=== PATIENT | female | born 1975 | race African-American/Black ===

== ENCOUNTER 2018-12-21 09:28 | Emergency (ER) | payer BC, SELFPAY ==
[2018-12-21] MEDS ORDERED: Ketorolac Tromethamine 30 MG/ML VIAL ONE (10:47)
== END 2018-12-21 11:36 | disposition home or self-care (01) ==
LOC: ERS 09:28
DX: M25.462 Effusion, left knee (principal); F32.9 Major depressive disorder, single episode, unspecified; F17.210 Nicotine dependence, cigarettes, uncomplicated
CPT/HCPCS: 96372; J1885

== ENCOUNTER 2019-05-24 09:59 | Outpatient (CLI) | payer OTHER ==
--- NOTE | 2019-05-24 11:10 | MRI ---
EXAM: Left knee MRI without contrast: HISTORY: Meniscal tear posterior and lateral pain and swelling COMPARISON: None FINDINGS: Multiplanar, multisequence MRI examination of the knees performed. Large joint effusion with some linear and interstitial changes evidence for associated synovitis. In addition there are some fatty deposits within the joint capsule region evidence for lipoma arborescens Severe articular cartilage loss particularly the lateral and medial compartments. Medial meniscus: Unremarkable. Lateral meniscus: Extensive complex tear of the lateral meniscus with a flap component at the anterio r horn and probably at the posterior horn. Anterior cruciate ligament:Markedly abnormally thickened and of high signal evidence for extensive mu coid degeneration without acute disruption. Posterior cruciate ligament: Intact. Medial collateral ligament complex: Intact. Lateral collateral ligament complex: Intact. Quadriceps and patellar tendons: Intact. Extensor mechanism: Unremarkable. Minimal intraosseous cystic changes in the proximal fibula. IMPRESSION: Evidence for joint effusion and associated nonspecific synovitis with evidence for lipoma arborescens . Complex tear of the lateral meniscus with flap components. Marked mucoid degeneration of the ACL without acute obstruction. Extensive cartilage loss particularly of the lateral compartment.
== END 2019-05-24 10:00 | disposition home or self-care (01) ==
LOC: BICMRI 09:59
PROVIDERS: ATTEND Orthopaedic Surgery
DX: S83.272A Complex tear of lateral meniscus, current injury, left knee, initial encounter (principal); M25.462 Effusion, left knee; M65.9 Synovitis and tenosynovitis, unspecified; D17.79 Benign lipomatous neoplasm of other sites; R93.6 Abnormal findings on diagnostic imaging of limbs

== ENCOUNTER 2019-05-25 10:29 | Outpatient (CLI) | payer OTHER ==
[2019-05-25 16:38] LABS: #Basophils 0.1 thou/uL (0.0-0.2); #Eosinphils 0.2 thou/uL (0.0-0.7); #Lymphocytes 3.1 thou/uL (1.20-3.40); #Monocytes 0.5 thou/uL (0.11-0.59); %Basophils 1.5 % (0.0-1.0); %Eosinophils 2.3 % (0.0-10.0); %Lymphocytes 34.9 % (21.0-51.0); %Monocytes 5.1 % (0.0-10.0); %Neutrophils 56.2 % (42.0-75.0); Mean Corpuscular HGB CONC 33.3 g/dL (32.0-36.0); Mean Corpuscular Hemoglobin 33.5 pg (27.0-31.0); Mean Platelet Volume 6.2 fL (7.4-10.4); Platelet Count 458 thou/uL (130-400); RBC Distribution Width 11.7 % (11.5-14.5); Red Blood Cell (RBC) Count 3.89 mill/uL (4.20-5.40); White Blood Cell (WBC) Count 8.8 thou/uL (4.8-10.8)
[2019-05-25 16:59] LABS: Anion Gap 15 mmol/L (10-20); BUN (Urea Nitrogen) 6 mg/dL (7.0-18.7); Calc. Creatinine Clearance 0 mL/min (70-130); Calcium 9.9 mg/dL (7.8-10.44); Carbon Dioxide 24 mmol/L (22-29); Chloride 101 mmol/L (98-107); Estimated GFR-MDRD Greater than 90; Glucose 76 mg/dL (70-105); Potassium 3.8 mmol/L (3.5-5.1); Sodium 136 mmol/L (136-145)
== END 2019-05-25 10:30 | disposition home or self-care (01) ==
LOC: LABBT 10:29
PROVIDERS: ATTEND Specialist
DX: Z01.812 Encounter for preprocedural laboratory examination (principal); K40.20 Bilateral inguinal hernia, without obstruction or gangrene, not specified as recurrent
CPT/HCPCS: 80048; 85025

== ENCOUNTER 2019-06-01 08:57 | Day surgery (SDC) | payer OTHER ==
[2019-05-25 16:03] VITALS: BMI 24.0
--- NOTE | 2019-05-28 10:13 | HP ---
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 Dr. Dietz is planning arthroscopy and left knee surgery in the future pending MRI. The patient has a large right inguinal hernia. It is very bothersome to her interfering with ability to work and function, ambulate with crutches, with an immobilizer on her left knee. On exam today, I appreciate a left inguinal hernia on standing. Plan is for laparoscopic mesh repair of bilateral inguinal hernias. She understands risks and benefits of the procedure and consents. SOCIAL HISTORY: Tobacco, 1/2 pack per day. Alcohol, occasionally. PAST SURGICAL HISTORY: Umbilical hernia repair, laparoscopic cholecystectomy, and partial hysterectomy in the past. PAST MEDICAL HISTORY: Hypertension and anxiety. MEDICATIONS: Tramadol, fluoxetine, triamterene, and hydrochlorothiazide 37.5/25 daily. REVIEW OF SYSTEMS: Ten-point noncontributory. PHYSICAL EXAMINATION: VITAL SIGNS: Weight 157 pounds, 69 inches, 23 BMI. HEAD, EARS, EYES, NOSE AND THROAT: Unremarkable. LUNGS: Clear to auscultation. CARDIAC: Regular rate and rhythm without murmur or gallop. ABDOMEN: Soft and nontender. EXTREMITIES: Left knee immobilizer. Large right inguinal hernia present on standing, large in the left side. Left inguinal hernia present on Valsalva. ASSESSMENT AND PLAN: 1. Bilateral inguinal hernias, right larger than left; right symptomatic and left asymptomatic. Plan laparoscopic mesh repair. She understands risks of infection, bleeding, reoperation, chronic pain, open procedure and consents. 2. Hypertension. 3. Anxiety and depression. Job ID: [id number]
[2019-06-01] MEDS ORDERED: Ketorolac Tromethamine 30 MG/ML VIAL ONE (09:16)
[2019-06-01] MEDS ORDERED: Bupivacaine HCl 0.5%/Epinephrine 1:200,000/PF 30 ml Vial ONE (11:06)
[2019-06-01] MEDS ORDERED: Fentanyl 100 MCG/2 ML VIAL ONE ×2 (11:09→13:11)
[2019-06-01] MEDS ORDERED: Midazolam HCl 2 mg/2 ml Vial ONE (11:14)
[2019-06-01] MEDS ORDERED: Dexamethasone 20 MG/5 ML VIAL ONE (11:41)
[2019-06-01] MEDS ORDERED: Rocuronium Bromide 10 MG/ML (10ML VIAL) ONE (11:41)
[2019-06-01] MEDS ORDERED: Lidocaine 1% PF 5 ML VIAL ONE (11:41)
[2019-06-01] MEDS ORDERED: PROPOFOL 200 MG/20 ML VIAL ONE (11:41)
[2019-06-01] MEDS ORDERED: Ondansetron PF 4 MG/2 ML Vial ONE (11:41)
[2019-06-01] MEDS ORDERED: Glycopyrrolate 0.2 MG/ML 5 ML SYRINGE ONE (11:41)
[2019-06-01] MEDS ORDERED: Promethazine HCl 25 MG/ML VIAL IM PRN (12:13)
[2019-06-01] MEDS ORDERED: PACU-Morphine 4MG/ML VIAL SLOW IVP PRN (12:13)
[2019-06-01] MEDS ORDERED: Ondansetron HCl/PF 4 MG/2 ML Vial IVP PRN (12:13)
[2019-06-01] MEDS ORDERED: Promethazine HCl 25 MG/ML VIAL SLOW IVP PRN (12:13)
[2019-06-01] MEDS ORDERED: HYDROcodone/Acetaminophen 5/325 mg Tablet ONE (13:38)
--- NOTE | 2019-06-01 19:06 | OP ---
DATE OF PROCEDURE: 06/01/2019 PREOPERATIVE DIAGNOSIS: Right inguinal hernia, possible left inguinal hernia. POSTOPERATIVE DIAGNOSIS: Large right inguinal hernia. No evidence of left inguinal hernia. PROCEDURE PERFORMED: Robot laparoscopic-assisted mesh 3D Bard max large repair right inguinal hernia, adhesiolysis from previous hysterectomy. ANESTHESIA: General, local 0.5% Marcaine with epinephrine 30 mL. DESCRIPTION OF PROCEDURE: The patient was taken to the operating room in supine position. Devlin catheter was placed at the beginning of the procedure and removed at the end. Abdomen was prepared with ChloraPrep and draped in routine fashion. Local anesthetic was infiltrated in the skin and subcutaneous tissue about all port sites. Left paramedian incision was made above the umbilicus, carried down to skin and subcutaneous tissue. Pneumoperitoneum to 15 mmHg was obtained with a Veress needle, replaced with 11 balloon port and video laparoscope was inserted. Bilateral far lateral abdominal incision was made, 8 mm port was placed. The robot was docked. Adhesions were present from previous hysterectomy. It was taken down robotically, freeing omental adhesions from the midline and then small bowel adhesions from the lower abdomen. There was no evidence of left inguinal hernia. There was a large right inguinal hernia with a large hernia sac. Peritoneum was incised from the midline to the anterior superior iliac spine, dissecting a peritoneal flap medially and laterally and dissecting the hernia sac free from the abdominal wall, freeing it, protecting the inferior epigastric vessels and the iliac vessels. This was dissected well identifying Mack ligament and the iliac chain, and then 3D Bard max large mesh properly oriented, secured with Mack ligament and to the anterior abdominal wall to the right of the epigastric vessels with 3-0 Vicryl. Once this was in good position, the peritoneal flap was closed with continuous suture of 2-0 Stratafix. Pneumoperitoneum was reduced and needles were removed, and all skin incisions were approximated with interrupted subdermal 4-0 Monocryl and [place] glue applied. Job ID: [id number]
--- NOTE | 2019-06-03 16:23 | EKG ---
Test Reason : PREOP Blood Pressure : / mmHG Vent. Rate : 071 BPM Atrial Rate : 071 BPM P-R Int : 146 ms QRS Dur : 086 ms QT Int : 394 ms P-R-T Axes : 067 038 042 degrees QTc Int : 428 ms Normal sinus rhythm Normal ECG When compared with ECG of 11-OCT-2013 14:17, No significant change was found Confirmed by DR. Olivia CASAREZ ([id number]) on 06/03/2019 4:22:41 PM Referred By: THAI Confirmed By:DR. Olivia CASAREZ
== END 2019-06-01 14:30 | disposition home or self-care (01) ==
LOC: SDC 08:57
PROVIDERS: ATTEND Specialist
PROC: 0YU54KZ Supplement Right Inguinal Region with Nonautologous Tissue Substitute, Percutaneous Endoscopic Approach (ICD-10-PCS; principal; 2019-06-01)
DX: K40.90 Unilateral inguinal hernia, without obstruction or gangrene, not specified as recurrent (principal); I10 Essential (primary) hypertension; F17.210 Nicotine dependence, cigarettes, uncomplicated; F41.9 Anxiety disorder, unspecified; F32.9 Major depressive disorder, single episode, unspecified; Z79.899 Other long term (current) drug therapy; Z88.8 Allergy status to other drugs, medicaments and biological substances
CPT/HCPCS: 93005; 93010; C1781; J0131; J0670; J0690; J1100; J1885; J2001; J2250; J2405; J2704; J3010

== ENCOUNTER 2019-09-25 07:33 | Outpatient (CLI) | payer OTHER ==
[2019-09-25 10:48] LABS: Hemoglobin 14.4 g/dL (12.0-16.0); Mean Corpuscular HGB CONC 33.7 g/dL (32.0-36.0); Mean Corpuscular Hemoglobin 33.8 pg (27.0-31.0); Mean Platelet Volume 6.5 fL (7.4-10.4); Platelet Count 456 thou/uL (130-400); RBC Distribution Width 11.3 % (11.5-14.5); Red Blood Cell (RBC) Count 4.24 mill/uL (4.20-5.40); White Blood Cell (WBC) Count 7.8 thou/uL (4.8-10.8)
[2019-09-25 11:12] LABS: Anion Gap 12 mmol/L (10-20); BUN (Urea Nitrogen) 11 mg/dL (7.0-18.7); Calc. Creatinine Clearance 0 mL/min (70-130); Carbon Dioxide 26 mmol/L (22-29); Chloride 101 mmol/L (98-107); Estimated GFR-MDRD Greater than 90; Glucose 79 mg/dL (70-105); Potassium 4.3 mmol/L (3.5-5.1); Sodium 135 mmol/L (136-145)
== END 2019-09-25 07:34 | disposition home or self-care (01) ==
LOC: LABBT 07:33
PROVIDERS: ATTEND Orthopaedic Surgery
DX: Z01.818 Encounter for other preprocedural examination (principal); S83.282A Other tear of lateral meniscus, current injury, left knee, initial encounter
CPT/HCPCS: 80048; 85027; 93005; 93010

== ENCOUNTER 2019-09-27 05:51 | Day surgery (SDC) | payer OTHER ==
[2019-09-25 09:52] VITALS: BMI 22.5
[2019-09-27] MEDS ORDERED: Bupivacaine PF 0.5% 30 ML VIAL ONE (06:59)
[2019-09-27] MEDS ORDERED: EPINEPHrine 1 MG/ML AMP ONE (06:59)
[2019-09-27] MEDS ORDERED: Fentanyl 100 MCG/2 ML VIAL ONE ×3 (07:04→08:33)
[2019-09-27] MEDS ORDERED: Dexamethasone 4 mg/ml Vial ONE ×2 (08:03)
[2019-09-27] MEDS ORDERED: Ketorolac Tromethamine 30 MG/ML VIAL ONE (08:39)
[2019-09-27] MEDS ORDERED: Promethazine HCl 25 MG/ML VIAL ONE (09:17)
[2019-09-27] MEDS ORDERED: Morphine 4 MG/ML VIAL ONE (09:17)
[2019-09-27] MEDS ORDERED: Esmolol 100 MG/10 ML VIAL ONE (10:06)
[2019-09-27] MEDS ORDERED: Labetalol HCl 100 MG/20 ML VIAL ONE (10:06)
[2019-09-27] MEDS ORDERED: Glycopyrrolate 0.2 MG/ML 5 ML SYRINGE ONE (10:06)
[2019-09-27] MEDS ORDERED: Ondansetron PF 4 MG/2 ML Vial ONE (10:06)
[2019-09-27] MEDS ORDERED: PROPOFOL 200 MG/20 ML VIAL ONE (10:06)
[2019-09-27] MEDS ORDERED: Lidocaine 1% PF 5 ML VIAL ONE (10:06)
[2019-09-27] MEDS ORDERED: Dexamethasone 20 MG/5 ML VIAL ONE (10:06)
--- NOTE | 2019-09-27 10:20 | OP ---
DATE OF PROCEDURE: 09/27/2019 PREOPERATIVE DIAGNOSIS: Complex tear of the lateral meniscus, left knee. 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 PROCEDURE PERFORMED: Arthroscopy of the left knee with partial lateral meniscectomy and partial synovectomy. ANESTHESIA: General. TECHNIQUE: The patient was given preoperative IV antibiotics, taken to the operating room, placed in a supine position. Satisfactory general anesthesia was performed. Left lower extremity was placed in a leg davis and sterilely prepped and draped in usual fashion. After exsanguination, tourniquet was raised to 250 mmHg. The knee was scoped through the usual anterior medial and anterior lateral portals. Upon entering the suprapatellar pouch, the patient was noted to have significant synovitis and a partial synovectomy was performed with a shaver in the suprapatellar pouch, and in the medial and lateral gutters, also in the anterior aspect of the knee just behind the infrapatellar fat pad. There were mild to moderate degenerative changes in the patellofemoral joint, and the articular cartilage was smoothed down with a shaver. The medial compartment had normal articular cartilage on the femur, tibia, and the medial meniscus thoroughly inspected and probed and was free of pathology. Intercondylar notch revealed an intact anterior cruciate ligament. The lateral compartment had a complex tearing of the lateral meniscus, and a partial lateral meniscectomy was performed using the shaver and surface ArthroWand. There was severe arthritis with complete loss of articular cartilage and [id number]-zoam apposition in the lateral compartment in the weightbearing surface. During the procedure, all the debris was irrigated out of the knee joint. The instruments were removed. The portals were closed with 3-0 Rapide. The knee joint was injected with 20 mL of 0.5% Marcaine with epinephrine and 2 mL of dexamethasone for a total of 8 mg. Sterile dressing was applied. Tourniquet was released. Leg was taken out of the leg davis. The patient was awakened, extubated, and transferred to recovery room in stable condition. ESTIMATED BLOOD LOSS: None. COMPLICATIONS: None. TOURNIQUET TIME: 27 minutes. DISCHARGE MEDICATION: [place] 10 one every 6 hours as needed for pain, #40. FOLLOWUP: Follow up in my office next week. Job ID: [id number]
== END 2019-09-27 10:24 | disposition home or self-care (01) ==
LOC: SDC 05:51
PROVIDERS: ATTEND Orthopaedic Surgery
DX: S83.272A Complex tear of lateral meniscus, current injury, left knee, initial encounter (principal); F32.9 Major depressive disorder, single episode, unspecified; I10 Essential (primary) hypertension; Z79.899 Other long term (current) drug therapy
CPT/HCPCS: J0171; J0690; J1100; J1885; J2001; J2270; J2405; J2550; J2704; J3010; S0020